=== PATIENT | male | born 1965 | race African-American/Black ===

== ENCOUNTER 2016-11-14 20:48 | Emergency (ER) | payer MEDICAID ==
[~2016-11-14] VITALS: Ht 175.3 cm; Wt 82.0 kg
[2016-11-14] MEDS ORDERED: DIPHENHYDRAMINE 50MG CAPSULE PO ONE (22:30)
[2016-11-14] MEDS ORDERED: FAMOTIDINE 20MG TABLET PO ONE (22:30)
[2016-11-15 00:14] VITALS: BP 142/92
== END 2016-11-15 00:14 | disposition home or self-care (01) ==
LOC: ER 22:32
DX: T78.40XA Allergy, unspecified, initial encounter (principal); R42 Dizziness and giddiness; Z86.73 Personal history of transient ischemic attack (TIA), and cerebral infarction without residual deficits; Z88.0 Allergy status to penicillin; Z91.010 Allergy to peanuts; X58.XXXA Exposure to other specified factors, initial encounter
CPT/HCPCS: 93005; 99283; Q0163